=== PATIENT | male | born 1960 | race Caucasian/White ===

== ENCOUNTER → 2017-09-17 | Outpatient (CLI) | payer OTHER ==
--- NOTE | 2017-09-17 19:50 | XCELERA REPORT ---
[address] [address] Transthoracic Echocardiogram Report Name: DANII MIXON Age: 57 yrs Gender: Male : 1960 Patient Status: Outpatient Patient Location: Study Date: 09/17/2017 11:07 AM Height: 76 in Weight: 318 lb BSA: 2.7 m2 Reason For Study: EDEMA, SOB Ordering Physician: LORENZO CINTRON Performed By: Lis Bar Interpretation Summary poor study due to 318# Very limited information obtained. AV sclerosis, no , no AR. Mild MAC, no MS, no MR seen, no LA enlargement. LV is prob not enlarged, unable to see endocardial definintion to measure LVEF of LVESD, likely not enlarged. Unable to assess all LV segments, see diagram. RV prob normal. uncertain if enlarged. RA likely enlarged and IVC dilated and poor sniff RAP 15mm. Unable to assess RVSP, no TR seen due to poor study. MMode/2D Measurements & Calculations RVDd: 3.1 cm LVIDd: 5.8 cm FS: 29.8 % Ao root diam: 2.8 cm IVSd: 1.2 cm LVIDs: 4.1 cm EDV(Teich): 164.9 ml LVPWd: 1.2 cm ESV(Teich): 72.3 ml Ao root area: 6.2 cm2 EF(Teich): 56.2 % LA dimension: 3.9 cm Doppler Measurements & Calculations MV E max leonie: MV P1/2t max leonie: Ao V2 max: LV V1 max P.4 cm/sec 106.7 cm/sec 150.7 cm/sec 5.4 mmHg MV A max leonie: MV P1/2t: 64.8 msec Ao max PG: LV V1 max: 109.8 cm/sec 9.1 mmHg 116.0 cm/sec MV E/A: 0.98 MVA(P1/2t): 3.4 cm2 MV dec slope: 482.6 cm/sec2 PA V2 max: 130.8 cm/sec PA max P.8 mmHg Left Ventricle The left ventricle is grossly normal size. The left ventricular ejection fraction is normal. LV diastolic function not assessed. Not all wall segments were well visualized. The left ventricular apex is not well visualized. Right Ventricle The right ventricle is mildly dilated. Atria The right atrium is dilated. The left atrial size is normal. The interatrial septum is intact with no evidence for an atrial septal defect. Mitral Valve The mitral valve leaflets are sclerotic and show some degree of functional abnormality. There is no evidence of mitral valve prolapse. There is no mitral valve stenosis. There is no mitral regurgitation noted. Aortic Valve The aortic valve is not well visualized secondary to technical limitations. The aortic valve is sclerotic and shows some degree of functional abnormality. Cannot exclude aortic valvular vegetation. There is no aortic valve stenosis. No aortic regurgitation is present. Tricuspid Valve The tricuspid valve is not well visualized secondary to technical limitations. Tricuspid regurgitation jet envelope not well defined to measure RV systolic pressure accurately. Pulmonic Valve The pulmonic valve is not well visualized. Great Vessels The aortic root is normal size. The inferior vena cava appeared dilated and decreased < 50% with respiration (RAP 15-20 mmHg). Effusions Minimal pericardial effusion. I WMSI = 1.30 % Normal = 70 Segments Size X - Cannot 1 - Normal 2 - 3 - Akinetic4 - 1-2 small Interpret Hypokinetic Dyskinetic 3-5 moderate 5 - 6-14 large Aneurysmal 15-16 diffuse : LORENZO CINTRON > Roby Bella
== END ==
LOC: SP 10:51
PROVIDERS: ATTEND Family Medicine
DX: R60.0 Localized edema (principal); R06.02 Shortness of breath
CPT/HCPCS: 93306

== ENCOUNTER → 2017-10-12 | Outpatient (CLI) | payer OTHER ==
--- NOTE | 2017-10-12 10:41 | RADIOLOGY REPORT (SQ) ---
EXAM DESCRIPTION: CT ABD/PELVIS NO ORAL OR IV COMPLETED DATE/TIME: 10/12/2017 10:07 am REASON FOR STUDY: HEMATURIA R31.29 OTHER MICROSCOPIC HEMATURIA COMPARISON: 10/14/2013 TECHNIQUE: CT scan of the abdomen and pelvis performed without intravenous or oral contrast. Images reviewed with lung, soft tissue, and bone windows. Reconstructed coronal and sagittal MPR images revi ewed. All images stored on PACS. All CT scanners at this facility use dose modulation, iterative reconstruction, and/or weight based d osing when appropriate to reduce radiation dose to as low as reasonably achievable (ALARA). [facility]: Dose Right [facility]: CareDose [facility]: Dose Right [facility]: Teradose 4D [facility]: Smart [employer] RADIATION DOSE: CT Rad equipment meets quality standard of care and radiation dose reduction techniq ues were employed. CTDIvol: 29.2 mGy. DLP: 1458 mGy-cm.mGy. LIMITATIONS: None. FINDINGS: LOWER CHEST: No significant findings. No nodules or infiltrates. NON-CONTRASTED LIVER, SPLEEN, ADRENALS: Evaluation limited by lack of IV contrast. No identified sign ificant masses. PANCREAS: No masses. No peripancreatic inflammatory changes. GALLBLADDER: No identified stones by CT criteria. No inflammatory changes to suggest cholecystitis. RIGHT KIDNEY AND URETER: No suspicious masses. Assessment limited by lack of IV contrast. No signif icant calcifications. No hydronephrosis or hydroureter. LEFT KIDNEY AND URETER: No suspicious masses. There are some small parapelvic cysts in the left kidn ey. No significant calcifications. No hydronephrosis or hydroureter. AORTA AND RETROPERITONEUM: No aneurysm. No retroperitoneal masses or adenopathy. BOWEL AND PERITONEAL CAVITY: No obvious masses or inflammatory changes. No free fluid. APPENDIX: Normal. PELVIS, BLADDER, AND ABDOMINAL WALL:Urinary bladder is normal. There is no free fluid in the pelvis. There is a small umbilical hernia containing only fat. BONES: No significant findings. OTHER: No other significant finding. IMPRESSION: 1. There are some small parapelvic cysts in the left kidney. No urinary calculi are se en. There is no ureteral obstruction. 2. Small umbilical hernia. COMMENT: Quality ID # [id number]: Final reports with documentation of one or more dose reduction techniques (e.g., Automated exposure control, adjustment of the mA and/or kV according to patient size, use of iterative reconstruction technique) TECHNICAL DOCUMENTATION: JOB ID: [id number] [employer]- All Rights Reserved Reading location - IP/workstation name: [email or web address]
== END ==
LOC: RAD 09:29
PROVIDERS: ATTEND Family Medicine
DX: R31.29 Other microscopic hematuria (principal)
CPT/HCPCS: 74176